=== PATIENT | male | born 2000 | race Caucasian/White ===

== ENCOUNTER 2020-06-10 10:22 | Outpatient (CLI) | payer BC, SELFPAY ==
[2020-06-11 15:21] LABS: SARS-CoV-2 RNA PCR Negative
== END 2020-06-10 10:23 | disposition home or self-care (01) ==
PROVIDERS: PCP Internal Medicine; Visit Provider Internal Medicine
DX: Z20.828 Contact with and (suspected) exposure to other viral communicable diseases (principal)
CPT/HCPCS: 87635; C9803; U0003